=== PATIENT | female | born 1980 | race Caucasian/White ===

== ENCOUNTER 2017-04-24 13:24 | Emergency (ER) | payer OTHER, SELFPAY | END 2017-04-24 15:53 | disposition home or self-care (01) | PROVIDERS: Emergency Provider Emergency Medicine; Family Provider Emergency Medicine; Visit Provider Emergency Medicine | DX: N83.202 Unspecified ovarian cyst, left side (principal); S33.5XXA Sprain of ligaments of lumbar spine, initial encounter; F17.210 Nicotine dependence, cigarettes, uncomplicated; Z87.442 Personal history of urinary calculi | CPT/HCPCS: 74176; 80053; 81001; 81025; 83690; 85025; 87086; 99282 ==

== ENCOUNTER → 2017-08-12 11:08 | Outpatient (REF) | payer OTHER, SELFPAY ==
[2017-08-12 15:14] LABS: Alanine Aminotransferase 38 U/L (12-78); Albumin Level 3.9 gm/dL (3.4-5.0); Albumin/Globulin Ratio 1.3 (1.1-1.8); Alkaline Phosphatase 114 U/L (46-116); Aspartate Amino Transferase 16 U/L (15-37); Bilirubin,Total 0.2 mg/dL (0.2-1.0); Blood Urea Nitrogen 16 mg/dL (7-18); Carbon Dioxide 24 mmol/L (21.0-32.0); Chloride 107 mmol/L (98-107); Chol/HDL Ratio 5.8 (1-3.5); Cholesterol 198 mg/dL (140-200); Creatinine,Serum 0.63 mg/dL (0.55-1.02); Estimated Glomerular Filt Rate 108 ml/min (>60); GFR (African American) 131 ML/MIN (>60); Glucose 98 mg/dL (74-106); HDL Cholesterol 34 mg/dL (29-89); LDL Cholesterol 144 mg/dL (0-130); Sodium 142 mmol/L (136-145); Thyroid Stimulating Hormone 1.16 uIU/ml (0.358-3.740); Total Protein,Serum 6.9 gm/dL (6.4-8.2); Triglycerides 99 mg/dL (30-200); VLDL Cholesterol 20 mg/dL (0-40)
== END ==
LOC: LAB 11:08
PROVIDERS: Visit Provider Emergency Medicine
DX: R53.83 Other fatigue (principal); E66.3 Overweight
CPT/HCPCS: 80053; 80061; 84439; 84443

== ENCOUNTER 2020-03-16 17:20 | Emergency (ER) | payer BC, SELFPAY ==
--- NOTE | 2020-03-16 17:31 | XR_ITS ---
PROCEDURE: XR FOOT LT MIN 3V Referring Doctor: Umesh Lopez Patient Age:39Y CLINICAL INDICATION: Stubbed toe during the night Stubbed toes on furniture this morning in the dark. Toe pain. COMPARISON: No exams were available for comparison FINDINGS: Left foot 3 view. AP lateral and oblique. This study of the entire foot reveals no acute fracture nor dislocation. The views of the toes are reveal no definitive fracture but close inspection of the great toe yield slight variation the trabecular pattern but no definitive cortical disruption.. . If there should be persistent pain at the toes a cone down view of the specific painful toe would be most optimal to optimize detail in order to identify any very subtle hairline fractures which not may not be appreciated on this foot series the .The other toes are intact. I with additional history see that the 5th toe was the primary painful toe and injury to the nailbed.. I see no definitive fracture at the 5th toe but of there is mild flexion at the toe making slightly difficult to visualize the distal tuft but I believe grossly intact. I suspect there is slight elevation of the toenail with some mild swelling if 5th toe on further review. The metatarsals are intact. The joint spaces are well maintained. Tarsal relationships normal. Nor erosions. Bones well mineralized. IMPRESSION: No acute fracture at the left foot or toes. Left foot osseous structures appear intact . Dictated by: Jacek Good MD 03/16/2020 19:19 Jacek Good MD in [place] 03/16/2020 19:19
[2020-03-16 17:54] VITALS: BP 117/76; PULSE 85; RESP 16; TEMP 36.8; O2SAT 97; BMI 36.4
--- NOTE | 2020-03-16 17:57 | HMH.EDUTC ---
[facility] [place] Clinical Impression: Foot pain, left Contusion of toe of left foot Qualifiers: Encounter type: initial encounter Toe: lesser toe Damage to nail status: without damage Qualified Code(s): S90.122A - Contusion of left lesser toe(s) without damage to nail, initial encounter Disposition: Home, Self-Care Condition on Discharge: Good Instructions: DI for Toe Sprain, DI for Foot Pain Additional Instructions: Rest the extremity, apply ice for 15 minutes as tolerated three or four times per day, Elevate the extremity as tolerated while you are resting. Take ibuprofen for pain. I sent in a prescription to your pharmacy. Follow up with Dr. Muniz (Podiatry). Sometimes there can be fractures that don't show up well on the first set of x-rays. So, you should follow up if you continue to have symptoms. I put in a referral but you need to call her office and schedule an appointment. Follow up with your regular doctor. GO TO THE ER FOR ANY WORSENING SYMPTOMS Prescriptions: Ibuprofen [Ibuprofen 600mg Tablet] 600 mg PO Q6HP PRN #30 tab PRN Reason: Mild Pain Transmission Status: Received by [facility] #[id number] Referrals: Brenton Felix MD [Primary Care Provider] - Brionna Muniz DPM [Staff Physician] - Forms: Work/School Release Time of Disposition: 18:08 Medical Decision Making - Medical Records Medical records reviewed: No: I reviewed the patient's medical records. - Norberto Inquiry Pt receiving controlled substance: No Vital Signs: 03/16/20 17:54 03/16/20 18:26 Temperature 98.3 F 98.3 F Temperature Source Oral Pulse Rate 85 Pulse Rate [Right Brachial] 85 Respiratory Rate 16 16 Blood Pressure 117/76 Blood Pressure [Right Arm] 117/76 Blood Pressure Mean [Right Arm] 89 Blood Pressure Source [Right Arm] Automatic Cuff Blood Pressure Position [Right Arm] Sitting 02 Sat by Pulse Oximetry 97 Oxygen Delivery Method Room Air - Radiology Data #1 Image(s): Foot/Toes Image Reviewed: Yes I reviewed the patient's radiology image, Yes I have reviewed radiologist's interpretation Preliminary Findings: Normal/NAD, No Fracture Seen PROCEDURE: XR FOOT LT MIN 3V Referring Doctor: Umesh Lopez Patient Age:39Y CLINICAL INDICATION: Stubbed toe during the night Stubbed toes on furniture this morning in the dark. Toe pain. COMPARISON: No exams were available for comparison FINDINGS: Left foot 3 view. AP lateral and oblique. This study of the entire foot reveals no acute fracture nor dislocation. The views of the toes are reveal no definitive fracture but close inspection of the great toe yield slight variation the trabecular pattern but no definitive cortical disruption.. . If there should be persistent pain at the toes a cone down view of the specific painful toe would be most optimal to optimize detail in order to identify any very subtle hairline fractures which not may not be appreciated on this foot series the .The other toes are intact. I with additional history see that the 5th toe was the primary painful toe and injury to the nailbed.. I see no definitive fracture at the 5th toe but of there is mild flexion at the toe making slightly difficult to visualize the distal tuft but I believe grossly intact. I suspect there is slight elevation of the toenail with some mild swelling if 5th toe on further review. The metatarsals are intact. The joint spaces are well maintained. Tarsal relationships normal. Nor erosions. Bones well mineralized. IMPRESSION: No acute fracture at the left foot or toes. Left foot osseous structures appear intact . Dictated by: Jacek Good MD 03/16/2020 19:19 Jacek Good MD in [place] 03/16/2020 19:19 [facility] [place] HPI - General Stated complaint: AO 03/16/20 Stubbed toes on l foot, swelling Time Seen by Provider: 03/16/20 17:58 Mode of Arrival: Ambulatory Source of Information: Patient Limitati
[2020-03-16 18:26] VITALS: BP 117/76; PULSE 85; RESP 16; TEMP 36.8; O2SAT 97
== END 2020-03-16 18:40 | disposition home or self-care (01) ==
PROVIDERS: Emergency Provider Nurse Practitioner Family; PCP Emergency Medicine
DX: S90.122A Contusion of left lesser toe(s) without damage to nail, initial encounter (principal); F41.9 Anxiety disorder, unspecified; F17.210 Nicotine dependence, cigarettes, uncomplicated; W22.8XXA Striking against or struck by other objects, initial encounter; Y92.019 Unspecified place in single-family (private) house as the place of occurrence of the external cause
CPT/HCPCS: 73630; 99201

== ENCOUNTER → 2020-10-08 13:39 | Outpatient (CLI) | payer BC, SELFPAY ==
[2020-10-08 13:54] LABS: Basophils % 0.8 % (0.1-2.0); Eosinophils # 0.1 K/mm3 (0.0-0.4); Eosinophils % 1.1 % (0.1-12.0); Hematocrit 36.2 % (37.0-47.0); Hemoglobin 12.7 g/dL (12.2-16.2); Lymphocytes # 2.3 K/mm3 (0.7-4.5); Lymphocytes % 39.8 % (10-50); Mean Corpuscular Hemoglobin 31.9 pg (27.0-31.2); Mean Corpuscular Volume 91.1 fl (81-99); Mean Platelet Volume 10.7 fl (7.4-10.4); Monocytes # 0.3 K/mm3 (0.1-1.0); Monocytes % 4.6 % (1.7-9.3); Neutrophils # 3.1 K/mm3 (1.8-7.8); Neutrophils % 53.8 % (37.0-80.0); Platelet Count 216 K/mm3 (142-424); Red Blood Count 3.97 M/mm3 (4.20-5.40); White Blood Count 5.8 K/mm3 (4.8-10.8)
[2020-10-08 14:13] LABS: Alanine Aminotransferase 24 U/L (12-78); Albumin Level 4.4 g/dl (3.5-5.0); Albumin/Globulin Ratio 1.7 (1.1-1.8); Alkaline Phosphatase 96 U/L (38-126); Aspartate Amino Transferase 24 U/L (14-36); Bilirubin,Total 0.4 mg/dl (0.2-1.3); Blood Urea Nitrogen 14 mg/dl (7-17); Calcium 9.1 mg/dl (8.4-10.2); Carbon Dioxide 26 mmol/L (22.0-30.0); Chloride 107 mmol/L (98-107); Chol/HDL Ratio 4.9 (1-3.5); Cholesterol 185 mg/dl (140-200); Estimated Glomerular Filt Rate 81 ml/min (>60); GFR (African American) 98 ML/MIN (>60); Globulin 2.6 g/dL (1.3-3.2); Glucose 123 mg/dl (74-100); HDL Cholesterol 38 mg/dl (40-60); Sodium 138 mmol/L (136-145); Triglycerides 110 mg/dl (30-150); VLDL Cholesterol 22 mg/dL (0-40)
[2020-10-08 14:25] LABS: Direct LDL Cholesterol 129.74 mg/dL (100-129)
[2020-10-08 14:29] LABS: 25-OH Vitamin D, Total 21.9 ng/mL (30-100)
[2020-10-08 14:30] LABS: Free T4 (Free Thyroxine) 0.89 ng/dl (0.78-2.19)
[2020-10-08 14:45] LABS: Thyroid Stimulating Hormone 1.12 uIU/mL (0.465-4.68)
[2020-10-08 15:03] LABS: Vitamin B12 207 pg/mL (239-931)
[2020-10-09 09:05] LABS: Hemoglobin A1C 5.2 % (4.0-6.0)
[2020-10-10 07:09] LABS: HIV Screen 4th Generation wRfx Non Reactive (Non Reactive); Hep A Ab, IgM Negative (Negative); Hepatitis B Core Antibody IgM Negative (Negative); Hepatitis B Surface Antigen Negative (Negative); Hepatitis C Antibody 0.2 s/co ratio (0.0-0.9)
== END ==
PROVIDERS: Visit Provider Physician Assistant
DX: Z00.00 Encounter for general adult medical examination without abnormal findings (principal); R20.0 Anesthesia of skin; R20.2 Paresthesia of skin; Z20.5 Contact with and (suspected) exposure to viral hepatitis; Z20.6 Contact with and (suspected) exposure to human immunodeficiency virus [HIV]; R73.09 Other abnormal glucose; Z11.4 Encounter for screening for human immunodeficiency virus [HIV]; E55.9 Vitamin D deficiency, unspecified
CPT/HCPCS: 80053; 80061; 80074; 82306; 82607; 83036; 84439; 84443; 85025; 86703; G0432

== ENCOUNTER 2020-12-14 12:43 | Emergency (ER) | payer BC, SELFPAY ==
[2020-12-14 13:15] VITALS: BP 133/82; PULSE 86; RESP 19; TEMP 37.7; O2SAT 100; BMI 38.0
[2020-12-14 13:50] VITALS: BP 133/82; PULSE 86; RESP 19; TEMP 37.7; O2SAT 100
--- NOTE | 2020-12-14 14:03 | HMH.EDUTC ---
[facility] – [place] Disposition Clinical Impression: Strep throat exposure Disposition: Home, Self-Care Condition on Discharge: Good Instructions: DI for Strep Throat Additional Instructions: covid swab was sent to lab, call later today for results. self isolate until test results are known to be negative Start antibiotics today be sure to take it as ordered with the full length of time although you should start feeling better in 24-48 hours. Change toothbrush and toothpaste 24-48 hours after starting antibiotics Tylenol or Motrin as needed for fever or pain Encourage fluids, water, Gatorade, Powerade, try cold fluids, popsicles, ice cream will make it feel better You are contagious for 24 hours. Avoid kissing anyone, no eating or drinking after anyone. You are contagious. Follow-up the ER for new or worsening symptoms or no noticeable improvement over the next 24-48 hours. Follow-up with PCP this week. Prescriptions: Azithromycin [Zithromax 250mg tab] 250 mg PO DIRECTED #6 tab Transmission Status: Pending to [facility] #[id number] Referrals: Lala Gann PA [Primary Care Provider] - Time of Disposition: 14:08 Medical Decision Making - Norberto Inquiry Pt receiving controlled substance: No Vital Signs: 12/14/20 13:15 12/14/20 13:50 Temperature 99.8 F H 99.8 F H Temperature Source Oral Pulse Rate 86 Pulse Rate [Right Brachial] 86 Respiratory Rate 19 19 Blood Pressure 133/82 Blood Pressure [Right Arm] 133/82 Blood Pressure Mean [Right Arm] 99 Blood Pressure Source [Right Arm] Automatic Cuff Blood Pressure Position [Right Arm] Sitting 02 Sat by Pulse Oximetry 100 Oxygen Delivery Method Room Air Orders (Tests/Meds): ORDERS Category Date Time Status Covid-19 Nasal PCR ([facility]) Routine Lab 12/14/20 13:36 Received [facility] [place] HPI - General Chief complaint: Urgent Treatment Center Stated complaint: possible strep Time Seen by Provider: 12/14/20 14:03 Mode of Arrival: Ambulatory Source of Information: Patient Limitations: No Limitations Description of Symptoms (Recalled from Triage Doc. by RN): PATIENT C/O SORE THROAT X 3 DAYS HEENT Symptoms (Recalled from RN notes): Yes Resp Symptoms (Recalled from RN notes): No Skin Symptoms (Recalled from RN notes): No MS Symptoms (Recalled from RN notes): No Functional Status (Recalled from RN notes): WNL - History of Present Illness Provider Complaint: 39 yr old female presents for sore throat for 3 days. - Related Data Previous Rx's Medication Instructions Recorded cholecalciferol (vitamin D3) 25 25 mcg PO DAILY #30 cap 10/10/20 mcg (1,000 unit) capsule ergocalciferol (vitamin D2) 1,250 1,250 mcg PO WEEKLY #5 cap 10/10/20 mcg (50,000 unit) capsule cyanocobalamin (vitamin B-12) 1,000 mcg SQ WEEKLY 84 Days #12 10/11/20 1,000 mcg/mL injection kit each Azithromycin [Zithromax 250mg 250 mg PO DIRECTED #6 tab 12/14/20 tab] Allergies Allergy/AdvReac Type Severity Reaction Status Date / Time No Known Allergies Allergy Verified 10/08/20 10:18 - Worker's Comp Is this a Worker's Comp case?: No [facility] History - Hepatitis A Screen Drug use history?: No High risk sexual behaviors?: No History of sexually transmitted infection?: No Currently employed?: No Childcare worker?: No Do you have indoor plumbing?: Yes Do you have electricity?: Yes Attestation statement:: This patient has been screened for Hepatitis A risk factors. I have reviewed the patient's past medical history: Yes Medical History: Reports:: Anxiety Other Surgeries: Yes: Cholecystectomy Amputation: No Fractures: No - Social History Smoking Status: Former smoker Tobacco Type: cigarettes # Packs/Day (cigarettes): 1 Alcohol Intake: never Substance Use Type: denies use Occupational Status: other Housing: house Household Members: children, significant other - Psychiatric History Pschychiatric History:: Reports:: Anxiety Family Hx:: Hypertension
[2020-12-14 22:09] LABS: UTC Strep Screen (Rapid) Negative (Negative)
== END 2020-12-14 14:09 | disposition home or self-care (01) ==
PROVIDERS: Emergency Provider Nurse Practitioner Family; PCP Physician Assistant
DX: J02.9 Acute pharyngitis, unspecified (principal); Z20.828 Contact with and (suspected) exposure to other viral communicable diseases
CPT/HCPCS: 87880; 99203; G0463; U0003

== ENCOUNTER 2021-12-26 22:55 | Emergency (ER) | payer BC, SELFPAY ==
[2021-12-26 22:57] VITALS: BP 132/87; PULSE 108; RESP 16; TEMP 37.1; O2SAT 96; BMI 39.6
--- NOTE | 2021-12-26 23:28 | XR_ITS ---
PROCEDURE INFORMATION: Exam: XR Chest Exam date and time: 12/26/2021 11:48 PM Age: 41 years old Clinical indication: Cough TECHNIQUE: Imaging protocol: Radiologic exam of the chest. Views: 2 views. COMPARISON: CR CXR CHEST(2 VIEWS-NOT PORTABLE) 05/12/2015 5:07 PM FINDINGS: Lungs: A few peripheral granulomatous calcifications are again noted in the left lung, unchanged. Normal pulmonary expansion. Pulmonary vasculature grossly normal. No gross pulmonary infiltrates or edema pattern. Pleural spaces: No pleural effusion. No pneumothorax. Heart/Mediastinum: Heart size normal. No tracheal/mediastinal shift. Bones/joints: No acute osseous abnormalities are identified. Intraperitoneal space: Right upper quadrant surgical clips suggest prior cholecystectomy. IMPRESSION: No acute thoracic process.
[2021-12-26 23:30] VITALS: BP 124/93; PULSE 88; O2SAT 93
[2021-12-26 23:37] LABS: Influenza A, PCR Not Detected (NotDetected); Influenza B, PCR Not Detected (NotDetected); Microscopic, Urine URINE MICROSCOPIC (MICROSCOPIC)
[2021-12-26 23:40] LABS: Basophils # 0.1 K/mm3 (0-0.2); Basophils % 1.5 % (0.1-2.0); Eosinophils % 0.8 % (0.1-12.0); Hematocrit 41.8 % (37.0-47.0); Hemoglobin 13.4 g/dL (12.2-16.2); Lymphocytes # 1.7 K/mm3 (0.7-4.5); Lymphocytes % 43.1 % (10-50); Mean Corpuscular HGB Conc 31.9 g/dL (31.8-35.4); Mean Corpuscular Hemoglobin 31.5 pg (27.0-31.2); Mean Corpuscular Volume 98.5 fl (81-99); Mean Platelet Volume 10.9 fl (7.4-10.4); Monocytes # 0.3 K/mm3 (0.1-1.0); Monocytes % 8.2 % (1.7-9.3); Neutrophils # 1.8 K/mm3 (1.8-7.8); Neutrophils % 46.4 % (37.0-80.0); Platelet Count 185 K/mm3 (142-424); Red Blood Count 4.25 M/mm3 (4.20-5.40); Red Cell Distribution Width 14.3 % (11.5-17.5); White Blood Count 3.9 K/mm3 (4.8-10.8)
[2021-12-26 23:42] LABS: Appearance,Urine CLEAR (Clear); Bilirubin,Urine Negative (Negative); Blood, Urine Negative (Negative); Color,Urine YELLOW (Yellow); Glucose,Urine (UA) Negative (Negative); Ketones,Urine Negative (Negative); Leukocyte Esterase,Urine Negative (Negative); Nitrate,Urine Negative (Negative); Protein,Urine Negative (Negative); Specific Gravity, Urine >= 1.030 (1.005-1.030); Urobilinogen,Urine 0.2 EU/dl (0.2)
[2021-12-26 23:44] LABS: Urine Pregnancy, HCG Qual. Negative (Negative)
[2021-12-26 23:45] LABS: Alanine Aminotransferase 58 U/L (12-78); Albumin Level 4.2 g/dl (3.5-5.0); Albumin/Globulin Ratio 1.4 (1.1-1.8); Alkaline Phosphatase 117 U/L (38-126); Amylase 73 U/L (30-110); Anion Gap 9.9 mEq/L (5-15); Aspartate Amino Transferase 68 U/L (14-36); Blood Urea Nitrogen 9 mg/dl (7-17); Calcium 8.6 mg/dl (8.4-10.2); Carbon Dioxide 26 mmol/L (22.0-30.0); Chloride 106 mmol/L (98-107); Creatinine Clearance Estimated 189 mL/min (50-200); Estimated Glomerular Filt Rate 111 ml/min (>60); GFR (African American) 135 ML/MIN (>60); Globulin 3.1 g/dL (1.3-3.2); Glucose 156 mg/dl (74-100); Lipase 150 U/L (23-300); Potassium 3.9 mmoL/L (3.5-5.1); Sodium 138 mmol/L (136-145); Total Protein,Serum 7.3 g/dl (6.3-8.2)
[2021-12-26 23:46] LABS: Amorphous Sediment,Urine Trace /lpf; Mucus,Urine 4+ /lpf
[2021-12-26 23:49] LABS: Bilirubin,Total < 0.1 mg/dl (0.2-1.3)
[2021-12-26 23:50] LABS: C-Reactive Protein 5.9 mg/L (0-4)
[2021-12-26 23:56] LABS: Strep Scrn Group A (Rapid) Negative (Negative)
[2021-12-27 00:03] LABS: Erythrocyte Sedimentation Rate 20 mm/hr (0-20)
[2021-12-27 00:04] LABS: Procalcitonin 0.187 ng/mL (0.0-2.0)
[2021-12-27 00:18] LABS: Coronavirus 19, PCR Detected (NotDetected)
[2021-12-27 00:30] VITALS: BP 130/88; PULSE 94; O2SAT 94
--- NOTE | 2021-12-27 00:36 | HMH.EDURI ---
Discharge Plan Disposition Patient Disposition: Home, Self-Care Chief Complaint: Upper Respiratory Infection Prescriptions Prescriptions: No Action ergocalciferol (vitamin D2) 1,250 mcg (50,000 unit) capsule 1,250 mcg PO WEEKLY Qty: 5 2RF cholecalciferol (vitamin D3) 25 mcg (1,000 unit) capsule 25 mcg PO DAILY Qty: 30 2RF cyanocobalamin (vitamin B-12) 1,000 mcg/mL kit 1,000 mcg SQ WEEKLY 84 Days Qty: 12 0RF paroxetine HCl 20 mg tablet See Rx Instructions .ROUTE .COMPLEX Qty: 90 0RF Dose Instruction: TAKE 1 TABLET BY MOUTH EVERY MORNING Rx Instructions: TAKE 1 TABLET BY MOUTH EVERY MORNING buspirone 5 mg tablet See Rx Instructions .ROUTE .COMPLEX Qty: 270 0RF Dose Instruction: TAKE 1 TABLET BY MOUTH THREE TIMES DAILY Rx Instructions: TAKE 1 TABLET BY MOUTH THREE TIMES DAILY Referrals Follow up/Referrals: Lala Gann PA [Primary Care Provider] - See instructions Clinical Impressions Clinical Impression: COVID-19 Instructions Patient Instructions: DI for COVID-19 (Suspected or Confirmed ) Discharge ED Provider: Brenton Felix URI/Sore Throat HPI General Chief Complaint: Upper Respiratory Infection Stated Complaint: sore throat,cough,BOSCH diarrhea Time Seen by Provider: 12/27/21 00:36 Mode of Arrival: Ambulatory Source of Information: Patient and Medical Record Limitations: No Limitations Description of Symptoms (Recalled from ER Triage Doc. by RN): pt reports body aches pains with chills for 2 days pt also states that she took her flu shot last week. pt also states to have diarrhea History of Present Illness HPI Narrative: uri sx and achey with chills over the last 2 days MD Complaint: cough, sore throat and nasal congestion Onset (ago): day(s) Duration: intermittent Severity: moderate Able to tolerate fluids by mouth: Yes Associated symptoms: denies other symptoms Treatments prior to arrival: acetaminophen and ibuprofen Related Data Previous Rx's Medication Instructions Recorded cholecalciferol (vitamin D3) 25 25 mcg PO DAILY #30 caps 10/10/20 mcg (1,000 unit) capsule ergocalciferol (vitamin D2) 1,250 1,250 mcg PO WEEKLY #5 caps 18/21 mcg (50,000 unit) capsule cyanocobalamin (vitamin B-12) 1,000 mcg SQ WEEKLY 12 weeks #12 ea 10/11/20 1,000 mcg/mL injection kit paroxetine HCl 20 mg tablet See Rx Instructions .Route 09/28/21 .COMPLEX #90 tabs buspirone 5 mg tablet See Rx Instructions .Route 12/21/21 .COMPLEX #270 tabs Allergies Allergy/AdvReac Type Severity Reaction Status Date / Time No Known Allergies Allergy Verified 07/15/21 10:21 [facility] Medical History (Updated 12/27/21 @ 00:49 by Antoine Salas RN) Anxiety Social History Smoking Status: Never smoker alcohol intake: never substance use type: denies use current occupational status: other Travel in the last 8 weeks: None household members: significant other and children housing: house ROS Obtained: Yes All systems reviewed & no additional complaints except as documented Physical Exam General General appearance: alert Head Head exam: atraumatic Eye Eye exam: Present PERRL ENT ENT exam: Present mucous membranes moist Neck Neck exam: Present trachea midline Respiratory Respiratory exam: Present normal lung sounds bilaterally; Absent respiratory distress Cardiovascular Cardiovascular exam: Present regular rate; Absent systolic murmur Abdominal Exam Abdominal exam: Present soft Extremities Exam Extremities exam: Present full ROM Back Exam Back exam: Present normal inspection Neurological Exam Neurological exam: Present alert, oriented X3 and CN II-XII intact Psychiatric Psychiatric exam: Present normal affect Skin Skin exam: Absent rash Medical Decision Making Medical Records Medical records reviewed: Yes I reviewed the patient's medical records. Norberto Inquiry Pt receiving controlled substance: No Vital Signs:
[2021-12-27 01:03] VITALS: BP 116/86; PULSE 84; RESP 16; TEMP 36.6; O2SAT 97
== END 2021-12-27 01:03 | disposition home or self-care (01) ==
PROVIDERS: Emergency Provider Emergency Medicine; PCP Physician Assistant
DX: U07.1 COVID-19 (principal); R68.83 Chills (without fever)
CPT/HCPCS: 71046; 80053; 81001; 81025; 82150; 83690; 84145; 85025; 85651; 86140; 87430; 96360; 99283; C9803; U0003; U0005

== ENCOUNTER → 2022-04-05 21:45 | Outpatient (CLI) | payer BC, SELFPAY ==
[2022-04-05 18:20] LABS: Erythrocyte Sedimentation Rate 19 mm/hr (0-20)
[2022-04-05 18:32] LABS: Alanine Aminotransferase 47 U/L (12-78); Albumin Level 4.4 g/dl (3.5-5.0); Albumin/Globulin Ratio 1.7 (1.1-1.8); Alkaline Phosphatase 109 U/L (38-126); Anion Gap 12.7 mEq/L (5-15); Aspartate Amino Transferase 47 U/L (14-36); Bilirubin,Total 0.3 mg/dl (0.2-1.3); Blood Urea Nitrogen 13 mg/dl (7-17); Calcium 9.6 mg/dl (8.4-10.2); Carbon Dioxide 25 mmol/L (22.0-30.0); Chloride 105 mmol/L (98-107); Chol/HDL Ratio 4.9 (1-3.5); Cholesterol 205 mg/dl (140-200); Estimated Glomerular Filt Rate 111 ml/min (>60); GFR (African American) 135 ML/MIN (>60); Globulin 2.6 g/dL (1.3-3.2); Glucose 209 mg/dl (74-100); HDL Cholesterol 42 mg/dl (40-60); Potassium 3.7 mmoL/L (3.5-5.1); Sodium 139 mmol/L (136-145); Triglycerides 176 mg/dl (30-150); VLDL Cholesterol 35 mg/dL (0-40)
[2022-04-05 18:43] LABS: Basophils # 0.1 K/mm3 (0-0.2); Basophils % 0.8 % (0.1-2.0); C-Reactive Protein 2.7 mg/L (0-4); Direct LDL Cholesterol 132.09 mg/dL (100-129); Eosinophils # 0.1 K/mm3 (0.0-0.4); Hematocrit 40.3 % (37.0-47.0); Hemoglobin 13.1 g/dL (12.2-16.2); Lymphocytes # 1.9 K/mm3 (0.7-4.5); Lymphocytes % 35.4 % (10-50); Mean Corpuscular HGB Conc 32.6 g/dL (31.8-35.4); Mean Corpuscular Hemoglobin 31.6 pg (27.0-31.2); Mean Corpuscular Volume 97.1 fl (81-99); Mean Platelet Volume 10.9 fl (7.4-10.4); Monocytes # 0.2 K/mm3 (0.1-1.0); Monocytes % 4.2 % (1.7-9.3); Neutrophils # 3.2 K/mm3 (1.8-7.8); Neutrophils % 58.6 % (37.0-80.0); Platelet Count 229 K/mm3 (142-424); Red Blood Count 4.15 M/mm3 (4.20-5.40); Red Cell Distribution Width 14.1 % (11.5-17.5); White Blood Count 5.4 K/mm3 (4.8-10.8)
[2022-04-05 18:50] LABS: 25-OH Vitamin D, Total 16.9 ng/mL (30-100)
[2022-04-05 19:02] LABS: Thyroid Stimulating Hormone 1.98 uIU/mL (0.465-4.68)
[2022-04-05 19:21] LABS: Vitamin B12 307 pg/mL (239-931)
[2022-04-07 12:38] LABS: Anti-Cyclic Citrullinated Pept 0 units (0-19); RA Latex Turbid. <10.0 IU/mL (<14.0)
[2022-04-07 16:12] LABS: Anti-Centromere B Antibodies <0.2 AI (0.0-0.9); Anti-DNA (DS) Ab Qn 1 IU/mL (0-9); Anti-Jo-1 <0.2 AI (0.0-0.9); Anti-Smith Antibody <0.2 AI (0.0-0.9); Antichromatin Antibodies <0.2 AI (0.0-0.9); Antiscleroderma-70 Antibodies <0.2 AI (0.0-0.9); RNP Antibodies 0.2 AI (0.0-0.9); Sjogren's Anti-SS-A <0.2 AI (0.0-0.9); Sjogren's Anti-SS-B <0.2 AI (0.0-0.9)
== END ==
PROVIDERS: Visit Provider Physician Assistant
DX: M25.50 Pain in unspecified joint (principal); R73.09 Other abnormal glucose
CPT/HCPCS: 80053; 80061; 82306; 82607; 83036; 84443; 85025; 85651; 86140; 86200; 86225; 86235; 86431

== ENCOUNTER → 2023-04-04 23:29 | Outpatient (CLI) | payer BC, SELFPAY ==
[2023-04-04 19:07] LABS: Basophils % 0.4 % (0.1-2.0); Eosinophils # 0.1 K/mm3 (0.0-0.4); Eosinophils % 1.1 % (0.1-12.0); Hematocrit 39.6 % (37.0-47.0); Hemoglobin 14.1 g/dL (12.2-16.2); Lymphocytes # 2.8 K/mm3 (0.7-4.5); Lymphocytes % 32.9 % (10-50); Mean Corpuscular HGB Conc 35.5 g/dL (31.8-35.4); Mean Corpuscular Hemoglobin 32.3 pg (27.0-31.2); Mean Corpuscular Volume 90.9 fl (81-99); Mean Platelet Volume 11.1 fl (7.4-10.4); Monocytes # 0.3 K/mm3 (0.1-1.0); Monocytes % 3.9 % (1.7-9.3); Neutrophils # 5.2 K/mm3 (1.8-7.8); Neutrophils % 61.6 % (37.0-80.0); Platelet Count 209 K/mm3 (142-424); Red Blood Count 4.36 M/mm3 (4.20-5.40); Red Cell Distribution Width 14.4 % (11.5-17.5); White Blood Count 8.5 K/mm3 (4.8-10.8)
[2023-04-04 19:40] LABS: Hemoglobin A1C 5.5 % (4.0-6.0)
[2023-04-04 20:04] LABS: Alanine Aminotransferase 54 U/L (12-78); Albumin Level 4.4 g/dl (3.5-5.0); Albumin/Globulin Ratio 1.6 (1.1-1.8); Alkaline Phosphatase 102 U/L (38-126); Anion Gap 10.2 mEq/L (5-15); Aspartate Amino Transferase 48 U/L (14-36); Bilirubin,Total 0.5 mg/dl (0.2-1.3); Blood Urea Nitrogen 13 mg/dl (7-17); Calcium 8.8 mg/dl (8.4-10.2); Carbon Dioxide 27 mmol/L (22.0-30.0); Chloride 104 mmol/L (98-107); Chol/HDL Ratio 4.4 (1-3.5); Cholesterol 196 mg/dl (140-200); Estimated Glomerular Filt Rate 93 ml/min (>60); GFR (African American) 112 ML/MIN (>60); Globulin 2.7 g/dL (1.3-3.2); Glucose 92 mg/dl (74-100); HDL Cholesterol 45 mg/dl (40-60); Potassium 4.2 mmoL/L (3.5-5.1); Sodium 137 mmol/L (136-145); Total Protein,Serum 7.1 g/dl (6.3-8.2); Triglycerides 74 mg/dl (30-150); VLDL Cholesterol 15 mg/dL (0-40)
[2023-04-04 20:22] LABS: 25-OH Vitamin D, Total 29.2 ng/mL (30-100)
[2023-04-04 20:34] LABS: Thyroid Stimulating Hormone 1.26 uIU/mL (0.465-4.68)
[2023-04-04 20:54] LABS: Vitamin B12 288 pg/mL (239-931)
[2023-04-04 21:21] LABS: Iron 87 ug/dL (37-170)
[2023-04-04 21:31] LABS: Total Iron Binding Capacity 374 ug/dL (265-497)
[2023-04-04 21:58] LABS: Ferritin 71.3 ng/ml (6.24-137)
== END ==
LOC: LAB.DROPOF 23:29
PROVIDERS: PCP Physician Assistant; Visit Provider Physician Assistant
DX: G43.909 Migraine, unspecified, not intractable, without status migrainosus (principal); E55.9 Vitamin D deficiency, unspecified; Z79.899 Other long term (current) drug therapy
CPT/HCPCS: 80053; 80061; 82306; 82607; 82728; 83036; 83540; 83550; 84443; 85025

== ENCOUNTER 2023-12-13 10:43 | Outpatient (CLI) | payer BC, SELFPAY ==
[2023-12-13 18:55] LABS: Influenza A, PCR Not Detected (NotDetected); Influenza B, PCR Not Detected (NotDetected)
[2023-12-13 19:29] LABS: Coronavirus 19, PCR Detected (NotDetected)
== END 2023-12-13 23:59 | disposition home or self-care (01) ==
LOC: LAB.DROPOF 12-14 10:43
PROVIDERS: PCP Nurse Practitioner Family; Visit Provider Nurse Practitioner Family
DX: R50.9 Fever, unspecified (principal); U07.1 COVID-19
CPT/HCPCS: 87636

== ENCOUNTER 2024-01-09 14:30 | Outpatient (CLI) | payer BC, SELFPAY | END 2024-01-09 23:59 | disposition home or self-care (01) | LOC: LAB.DROPOF 01-10 13:34 | PROVIDERS: PCP Family Medicine; Visit Provider Family Medicine | DX: R35.0 Frequency of micturition (principal) | CPT/HCPCS: 87086 ==

== ENCOUNTER 2024-10-22 15:11 | Outpatient (CLI) | payer BC, SELFPAY ==
--- OUTSIDE RECORDS SUMMARY | 2024-10-22 15:14 | XMS_ITS | Clinical Summary ---
Author Organization Healthcare Address [address] [place] [address] Care Team Providers Care Physician/Ophthalmologist Name Role Phone Unkown, Not Given Primary Care Provider Unavaila ble Allergies No known active allergies Medications * This document contains information received from the source organization and may not represent a complete record from that organization. buPROPion XL (Wellbutrin XL) 150 MG 24 hr tablet Take 150 mg by mouth 1 (one) time each day. 07/30/2020 Active Vitamin D3 25 MCG (1000 UT) capsule Take 1,000 Units by mouth 1 (one) time each day. 11/21/2020 Active cyanocobalamin (Vitamin B-12) 1000 MCG/ML injection Inject 1,000 mcg under the skin 1 (one) time per week. On Tuesday12/08/2020 Active escitalopram (Lexapro) 10 MG tablet Take 10 mg by mouth 1 (one) time each day. 12/08/2020 Active cholecalciferol (Vitamin D3) 1.25 MG (89635 UT) capsule Take 50,000 Units by mouth 1 (one) time per week. On Tuesday Active Active Problems Problem Noted Date Diagnosed Date Carpal tunnel syndrome, bilateral 01/21/2021 Anxiety and depression 01/05/2021 Bilateral hand pain 12/11/2020 Overview (12/11/2020): Added automatically from request for surgery [id number] Immunizations Immunization Administration Dates Next Due Hep A, Unspecified 12/12/2018,05/23/2018 Hep B, Adolescent or Pediatric 12/22/2016,2016 Hep B, adult 11/24/2017,12/22/2016,11/18/2016 Influenza, Unspecified 02/13/2021,03/19/2020, Influenza, injectable, MDCK, preservative free, quadrivalent 01/06/2017 Influenza, injectable, quadr ivalent, preservative free 12/17/2021,02/13/2021,03/19/2020 TD (adult), 2 Lf tetanus tox oid, preservative free, adsorbed 06/28/1997 Tdap 12/17/2021,11/18/2016,12/22/2007 Family History Medical History Relation Name Comments Arthritis Mother Cardiac disorder Mother Relation Name Status Comments Mother Social History Tobacco Use Types Packs/Day Years Used Date Smoking Tobacco: Former Smokeless Tobacco: Never Alcohol Use Standard Drinks/Week Comments Yes 0 (1 standard drink = 0.6 oz pur e alcohol) once/year Comments No Sex and Gender Information Value Date Recorded Sex Assigned at Female 12/11/2021 10:07 PM EDT Legal Sex Female 6:41 PM EDT Gender Identity Female 12/11/2021 10:07 PM EDT Sexual Orientation Straight 12/11/2021 10 :07 PM EDT Last Filed Vital Signs Vital Sign Reading Time Taken Comments Blood Pressure 115/80 01/21/2021 10:46 AM EDT Pulse 91 01/21/2021 10:46 AM EDT Temperature 36.5 C (97.7 F) 01/21/2021 10:46 AM EDT Respiratory Rate 16 01/05/2021 9:00 AM EDT Oxygen Saturation 97% 01/21/2021 10:46 AM EDT Inhaled Oxygen Concentration - - Weight 91.2 kg (201 lb) 01/21/2021 10:46 AM EDT Height 154.9 cm (5' 1 ) 01/21/2021 10:46 AM EDT Body Mass Index 37.98 01/21/2021 10:46 AM EDT Plan of Treatment Health Maintenance Due Date Last Done Comments [facility]-Depression Screening 1982 [facility]-Infant/Child/Adol SDOH Screenings 1982 [facility]-Varicella Vaccines (1 of 2 - 13+ 2-dose series) 12/24/1995 HPV Vaccines (1 - 3-dose series) 1997 [facility]- SDOH Screenings 2000 [facility]-Adult SDOH Screenings 2000 [facility]-Pap Smear 12/24/2003 [facility]-Cervical Cancer Screening 2012 [facility]-HPV/Cotest 2012 [id number] Vaccine (3 - 2023- season) 2023 06/03/2020, 05/07/2020 [facility]-Influenza Vaccine (Season Ended) 2024 12/17/2021, 02/13/2021, 02/13/2021, Additional history exists [facility]-DTaP,Tdap,and Td Vaccines (5 - Td or Tdap) 12/18/2031 12/17/2021, 11/18/2016, 12/22/2007, Additional history exists [facility]-Zoster Vaccines (1 of 2) 2032 [facility]-Hepatitis B Vaccines Completed 018, 12/22/2016, 12/22/2016, Additional history exists [facility]-Hepatitis A Vaccines Aged Out 12/12/2018, 04/26 No longer eligible based on patient's age to complete this topic [facility]-HIB Vaccines Aged Out No longer e ligible based on patient's age to complete this topic [facility]-IPV Vaccines Aged Out No longer e ligible based on patient's age to complete this topic [facility]-Pneumococcal Vaccine: Pediatrics (0 to 5 Years) and At-Risk Patients (6 to 49 Years) Aged Out No longer eligible based on patient's age to complete this topic [facility]-Rotavirus Vaccines Aged Out No lo nger eligible based on patient's age to complete this topic Care Teams Physician/Ophthalmologist Relationship Specialty Start Date End Date Unkown, Not Given ELIEL GUZMAN [id number] PCP - General 12/31/20
--- NOTE | 2024-10-22 15:18 | US_ITS ---
PROCEDURE: US TRANSVAGINAL CLINICAL INDICATION: AUB COMPARISON: CT ABDPELW/O CT ABD PELVIS W/O CONTRAST from 04/24/2017 FINDINGS: Transvaginal sonographic images of the pelvis were obtained. UTERUS: 8.7 cm x 6.3cmx 5.5cm anteverted with a combined endometrial thickness of 9.3 mm. There is a small amount of fluid within the endometrium. There are several small nabothian cysts in the cervix. scar is present. There is a small, solid hyperechoic nodule within the cervix that measures 1.8 cm in size. LEFT OVARY: 3.2cmx1.7 cmx1.8cm with a volume of 5.1ml. There appears to be a corpus luteum measuring 1.7 cm x 1.3 cm RIGHT OVARY: 2.7 cmx 1.7 cmx2.0cm with a volume of 4.6ml. Both ovaries are seen and appear normal. Doppler flow to both ovaries are seen. There is no fluid in the cul-de-sac. IMPRESSION: 1. Anteverted uterus normal in shape and size. The endometrium measures 9.3 mm and within the endometrium there is a small amount of fluid. 2. There appears to be a hyperechoic solid nodule within the cervix that measures 1.8 cm in size. Possibly a cervical polyp or fibroid. See images 28-33. 3. Both ovaries are seen and appear normal. The left ovary has a corpus luteum measuring 1.7 cm. 4. No fluid in the cul-de-sac. Dictated by: Jerald Dunne MD 10/22/2024 16:18 Jerald Dunne MD in [place] 10/22/2024 16:18
--- NOTE | 2024-10-22 15:18 | MM_ITS ---
PROCEDURE INFORMATION: Exam: MG Bilateral Screening 3D Mammography Exam date and time: 10/22/2024 3:38 PM Age: 43 years old Clinical indication: Screening exam. TECHNIQUE: Imaging protocol: Bilateral Screening tomosynthesis and 2D mammography including computer-aided detection (CAD) when performed. COMPARISON: No relevant prior studies available. FINDINGS: MAMMOGRAPHY: Breast composition: There are scattered areas of fibroglandular density. Mass: 0.8 cm mass upper-outer left breast middle depth. Questioned 0.6 cm mass upper-outer right breast middle depth. Architectural distortion: None. Calcifications: No suspicious calcifications. Asymmetric density: None. Skin thickening: None. Axillary adenopathy: None. IMPRESSION: 1. Questioned right breast mass.Recommend right breast diagnostic mammogram including spot compression views of the right breast in the CC and MLO projections, a full 90 degree lateral view, and right breast ultrasound for further evaluation. 2. Left breast mass. Recommend further evaluation with left breast ultrasound. ASSESSMENT: BI-RADS Category 0: Incomplete- Need Additional Imaging Evaluation.
== END 2024-10-22 23:59 | disposition home or self-care (01) ==
LOC: RAD 15:12
PROVIDERS: PCP Family Medicine; Visit Provider Obstetrics & Gynecology
DX: Z12.31 Encounter for screening mammogram for malignant neoplasm of breast (principal); N63.11 Unspecified lump in the right breast, upper outer quadrant; N63.21 Unspecified lump in the left breast, upper outer quadrant; N83.12 Corpus luteum cyst of left ovary; R93.89 Abnormal findings on diagnostic imaging of other specified body structures; R92.323 Mammographic fibroglandular density, bilateral breasts
CPT/HCPCS: 76830; 77063; 77067

== ENCOUNTER 2024-11-01 13:22 | Outpatient (CLI) | payer BC, SELFPAY ==
--- OUTSIDE RECORDS SUMMARY | 2024-11-01 13:25 | XMS_ITS | Clinical Summary ---
Author Organization Healthcare Address [address] [place] [address] Care Team Providers Care Hospital Social Worker Name Role Phone Unkown, Not Given Primary [...] 12/08/2020 Active cholecalciferol (Vitamin D3) 1.25 MG (68342 UT) capsule Take 50,000 Units by mouth 1 (one) time per week. On Tuesday Active Active Problems Problem Noted Date Diagnosed Date Carpal tunnel syndrome, bilateral 01/21/2021 Anxiety and depression 01/05/2021 Bilateral hand pain 12/11/2020 Overview (12/11/2020): Added automatically from request for surgery [id number] Immunizations Immunization Administration Dates Next Due Hep [...] 12/24/2003 [facility]-Cervical Cancer Screening 2012 [facility]-HPV/Cotest 2012 [id number] Vaccine (3 - 2023- season) 2023 06/03/2020, 05/07/2020 [facility]-Influenza Vaccine (#1) 12/24/202412/17, 02/13/2021, 02/13/2021, Additional history exists [facility]-DTaP,Tdap,and Td [...] age to complete this topic Care Teams Hospital Social Worker Relationship Specialty Start Date End Date Unkown, Not Given ELIEL GUZMAN [id number] PCP - General 12/31/20
--- NOTE | 2024-11-01 13:30 | US_ITS ---
PROCEDURE INFORMATION: Exam: US Left Breast, Complete US Right Breast, Complete MG Right Diagnostic Breast Tomosynthesis MG Right Diagnostic Mammography Exam date and time: 11/01/2024 1:35 PM Age: 43 years old Clinical indication: Callback from screening mammogram for bilateral breast masses. TECHNIQUE: Imaging protocol: Complete ultrasound of all four quadrants of the left breast and the retroareolar regions, including ultrasound of the axilla when performed. Complete ultrasound of all four quadrants of the right breast and the retroareolar regions, including ultrasound of the axilla when performed. Right Diagnostic tomosynthesis and 2D mammography including computer-aided detection (CAD) when performed. Unilateral or bilateral exam. Right Diagnostic mammography including computer-aided detection (CAD) when performed. Unilateral exam. COMPARISON: MG MM DIG SCREENING MAMM BI W/CAD 10/22/2024 3:38 PM FINDINGS: MAMMOGRAPHY: Breast composition: The breast is heterogeneously dense, which may obscure small masses. Breast mammogram findings: On the spot compression views of the right breast in the upper-outer quadrant, there is dense underlying glandular tissue without discrete mass, suspicious asymmetry, or distortion. ULTRASOUND: Breast ultrasound findings: Ultrasound of both breasts is performed. There are multiple similar simple and complicated benign-appearing cysts, measuring up to 0.9 cm on the right and up to 1.2 cm on the left. These small cysts correlate to the findings that were detected on the screening mammogram. There is no suspicious mass. No suspicious shadowing or distortion. No axillary adenopathy. IMPRESSION: 1. Findings in both breasts are most consistent with scattered breast cysts. 2. Annual bilateral mammographic screening is recommended unless otherwise clinically indicated. ASSESSMENT: BI-RADS Category 2: Benign.
== END 2024-11-01 23:59 | disposition home or self-care (01) ==
LOC: RAD 13:22
PROVIDERS: PCP Family Medicine; Visit Provider Obstetrics & Gynecology
DX: N60.02 Solitary cyst of left breast (principal); N60.01 Solitary cyst of right breast; R92.333 Mammographic heterogeneous density, bilateral breasts
CPT/HCPCS: 76641; 77061; 77065; G0279